=== PATIENT | male | born 1955 | race Caucasian/White ===

== ENCOUNTER 2019-12-31 15:26 | Emergency (ER) | payer MEDICAID ==
[~2019-12-31] VITALS: Ht 172.7 cm; Wt 75.0 kg
[2019-12-31] MEDS ORDERED: IBUPROFEN 600 MG TABLET PO ONE (16:15)
[2019-12-31 18:30] VITALS: BP 138/77
== END 2019-12-31 18:57 | disposition home or self-care (01) ==
LOC: EMS 15:28
DX: S82.431A Displaced oblique fracture of shaft of right fibula, initial encounter for closed fracture (principal); R03.0 Elevated blood-pressure reading, without diagnosis of hypertension; W00.0XXA Fall on same level due to ice and snow, initial encounter; Y93.89 Activity, other specified; Y92.69 Other specified industrial and construction area as the place of occurrence of the external cause; Y99.8 Other external cause status
CPT/HCPCS: 29515